=== PATIENT | female | born 1945 | race Caucasian/White ===

== ENCOUNTER → 2017-04-20 | Outpatient (CLI) | payer MEDICARE, OTHER ==
[~2017-04-20] MED LIST: ALPR0.5T99 PO; DEME50TA PO; LEVA3NEB7 NEB; METHO500 PO; TOPR50TA PO; XOPEAER4 INH; ZOFR4TAB3 SL
[2017-04-20 09:41] LABS: ANION GAP 7 MEQ/L (5-15); AST (GOT) 23 U/L (15-37); BICARBONATE 27.3 MEQ/L (21.0-32.0); BLOOD UREA NITROGEN 14 MG/DL (7-18); CHLORIDE 104 MEQ/L (98-107); GLUCOSE,FASTING 96 MG/DL (74-99); POTASSIUM 4.2 MEQ/L (3.5-5.1); SODIUM (NA) 138 MEQ/L (136-145)
[2017-04-20 09:42] LABS: GLOMERULAR FILTRATION RATE 79 ML/MIN (>89)
[2017-04-20 09:48] LABS: ALKALINE PHOSPHATASE 113 U/L (45-117); ALT (GPT) 24 U/L (10-53); HDL CHOLESTEROL 67.8 MG/DL (40.0-60.0); LDL CHOLESTEROL 80 MG/DL (0-99); TOTAL BILIRUBIN ADULT 0.2 MG/DL (0.2-1.0)
[2017-04-20 09:49] LABS: CREATINE KINASE 54 U/L (26-192)
== END ==
LOC: PLAB 06:50
DX: E78.5 Hyperlipidemia, unspecified (principal); Z79.899 Other long term (current) drug therapy
CPT/HCPCS: 36415; 80053; 80061; 82550

== ENCOUNTER → 2017-10-15 | Outpatient (CLI) | payer MEDICARE, OTHER ==
[2017-10-15 09:28] LABS: HEMATOCRIT 41.4 % (35.0-46.0); MEAN CELL VOLUME 86.7 FL (80.0-100.0); MEAN CORPUSCULAR HEMOGLOBIN 29.1 PG (27.0-34.0); MEAN CORPUSCULAR HGB CONC 33.6 % (32.0-36.0); PLATELET COUNT 198 TH/MM3 (150-450); RED BLOOD COUNT 4.78 MIL/MM3 (4.00-5.30); RED CELL DISTRIBUTION WIDTH 13.6 % (11.6-17.2); REVIEW FLAG FINAL; WHITE BLOOD COUNT 4.5 TH/MM3 (4.0-11.0)
[2017-10-15 10:01] LABS: ANION GAP 7 MEQ/L (5-15); AST (GOT) 29 U/L (15-37); BICARBONATE 28.5 MEQ/L (21.0-32.0); BLOOD UREA NITROGEN 11 MG/DL (7-18); CHLORIDE 104 MEQ/L (98-107); GLOMERULAR FILTRATION RATE 66 ML/MIN (>89); GLUCOSE,FASTING 83 MG/DL (74-99); POTASSIUM 4.3 MEQ/L (3.5-5.1); SODIUM (NA) 139 MEQ/L (136-145)
[2017-10-15 10:04] LABS: ALKALINE PHOSPHATASE 102 U/L (45-117); ALT (GPT) 21 U/L (10-53); CREATINE KINASE 116 U/L (26-192); HDL CHOLESTEROL 74.1 MG/DL (40.0-60.0); LDL CHOLESTEROL 48 MG/DL (0-99); TOTAL BILIRUBIN ADULT 0.3 MG/DL (0.2-1.0)
== END ==
LOC: PLAB 07:07
DX: E78.5 Hyperlipidemia, unspecified (principal); Z79.899 Other long term (current) drug therapy
CPT/HCPCS: 36415; 80053; 80061; 82550; 85027

== ENCOUNTER → 2018-04-19 | Outpatient (CLI) | payer MEDICARE, OTHER ==
[2018-04-19 10:37] LABS: AUTOMATED NEUTROPHIL # 2.1 TH/MM3 (1.8-7.7); BASOPHIL % 0.4 % (0.0-2.0); EOSINOPHIL # 0.2 TH/MM3 (0-0.4); EOSINOPHIL % 5.6 % (0.0-4.0); HEMATOCRIT 40.3 % (35.0-46.0); HEMOGLOBIN 13.3 GM/DL (11.6-15.3); LYMPH % 21.8 % (9.0-44.0); LYMPHOCYTE # 0.8 TH/MM3 (1.0-4.8); MEAN CELL VOLUME 85.8 FL (80.0-100.0); MEAN CORPUSCULAR HEMOGLOBIN 28.3 PG (27.0-34.0); MEAN PLATELET VOLUME 9.4 FL (7.0-11.0); MONO % 14.5 % (0.0-8.0); MONOCYTE # 0.5 TH/MM3 (0-0.9); NEUT % 57.7 % (16.0-70.0); PLATELET COUNT 266 TH/MM3 (150-450); RED CELL DISTRIBUTION WIDTH 13.2 % (11.6-17.2); WHITE BLOOD COUNT 3.7 TH/MM3 (4.0-11.0)
[2018-04-19 10:38] LABS: ALBUMIN 3.6 GM/DL (3.4-5.0); ALT (GPT) 28 U/L (10-53); AST (GOT) 29 U/L (15-37); BICARBONATE 28.8 MEQ/L (21.0-32.0); BLOOD UREA NITROGEN 13 MG/DL (7-18); CHLORIDE 104 MEQ/L (98-107); CHOLESTEROL 190 MG/DL (120-200); CREATININE 0.77 MG/DL (0.50-1.00); GLOMERULAR FILTRATION RATE 73 ML/MIN (>89); GLUCOSE,FASTING 82 MG/DL (74-99); SODIUM (NA) 141 MEQ/L (136-145)
[2018-04-19 10:48] LABS: ALKALINE PHOSPHATASE 108 U/L (45-117); CHOLESTEROL/ HDL RATIO 2.58 RATIO; HDL CHOLESTEROL 73.5 MG/DL (40.0-60.0); LDL CHOLESTEROL 101 MG/DL (0-99); TOTAL BILIRUBIN ADULT 0.3 MG/DL (0.2-1.0); TRIGLYCERIDES 78 MG/DL (42-150)
[2018-04-19 10:50] LABS: IMMUNOGLOBULIN A 128 MG/DL (90-497); IMMUNOGLOBULIN G 1100 MG/DL (650-1610); IMMUNOGLOBULIN M 311 MG/DL (42-255)
[2018-04-21 15:50] LABS: SEROTYPE 1 (1) 6.2 mcg/mL (>=2.3); SEROTYPE 10A (34) 1.5 mcg/mL (>=2.9); SEROTYPE 11A (43) 3.1 mcg/mL (>=2.4); SEROTYPE 12F (12) 1.1 mcg/mL (>=0.6); SEROTYPE 14 (14) 11.9 mcg/mL (>=7.0); SEROTYPE 15B (54) 3.9 mcg/mL (>=3.3); SEROTYPE 17F (17) 4.3 mcg/mL (>=7.8); SEROTYPE 18C (56) 3.5 mcg/mL (>=3.3); SEROTYPE 19A (57) 13.5 mcg/mL (>=17.1); SEROTYPE 20 (20) 0.3 mcg/mL (>=1.3); SEROTYPE 22F (22) 7.1 mcg/mL (>=7.2); SEROTYPE 23F (23) 7.9 mcg/mL (>=8.0); SEROTYPE 3 (3) 3.8 mcg/mL (>=1.8); SEROTYPE 33F (70) 9.4 mcg/mL (>=1.7); SEROTYPE 4 (4) 3.2 mcg/mL (>=0.6); SEROTYPE 5 (5) 1.2 mcg/mL (>=10.7); SEROTYPE 7F (51) 2.7 mcg/mL (>=3.2); SEROTYPE 8 (8) 4.8 mcg/mL (>=2.9); SEROTYPE 9N (9) 3.4 mcg/mL (>=9.2); SEROTYPE 9V (68) 10.4 mcg/mL (>=2.6)
== END ==
LOC: PLAB 06:55
PROVIDERS: ATTEND Internal Medicine Hematology
DX: E78.5 Hyperlipidemia, unspecified (principal); I10 Essential (primary) hypertension; I25.10 Atherosclerotic heart disease of native coronary artery without angina pectoris; D68.59 Other primary thrombophilia; M81.0 Age-related osteoporosis without current pathological fracture; R04.2 Hemoptysis; E53.9 Vitamin B deficiency, unspecified; Z79.899 Other long term (current) drug therapy
CPT/HCPCS: 36415; 80053; 80061; 82306; 82550; 82607; 82784; 84443; 85025; 86317